=== PATIENT | female | born 2000 | race Caucasian/White ===

== ENCOUNTER 2024-10-10 06:56 | Outpatient (REF) | payer BC, SELFPAY ==
--- NOTE | ~2024-10-10 | US_ITS ---
EXAMINATION: US PELVIS TRANSABDOMINAL AND TRANSVAGINAL HISTORY: LOW BACK PAIN ASSOC WITH MENSTRUAL PERIOD COMPARISON: There are no prior studies for comparison. TECHNIQUE: Transabdominal and endovaginal real-time 2D [place]-scale ultrasound was performed. FINDINGS: Uterus: The uterus is normal in size, measuring 6.9 x 3.6 x 4.9 cm. Myometrium has a normal echotexture. No fibroids are identified. Endometrium: The endometrial stripe measures 19 mm in thickness. Right ovary: The right ovary measures 3.3 x 2.2 x 3.5 cm. The right ovary is normal in size and echotexture. Left ovary: The left ovary measures 3.2 x 1.6 x 1.9 cm. The left ovary is normal in size and echotexture. Pelvic fluid: There is a small amount of free fluid in the cul-de-sac.. US/US pelvic and transvaginal IMPRESSION: Small amount of free fluid in the cul-de-sac. Otherwise unremarkable pelvic ultrasound. Electronically signed by: Femi Gilmore MD 10/10/2024 03:42 PM [facility]
== END 2024-10-10 06:57 | disposition home or self-care (01) ==
LOC: HO.UMASIMG 06:56
PROVIDERS: Visit Provider Nurse Practitioner
DX: M54.59 Other low back pain (principal)
CPT/HCPCS: 76830; 76856

== ENCOUNTER → 2024-10-10 14:00 | Outpatient (BNV) | payer BC, SELFPAY | PROVIDERS: Visit Provider Radiology Diagnostic Radiology | DX: M54.50 Low back pain, unspecified (principal) | CPT/HCPCS: 76830; 76856 ==